=== PATIENT | female | born 1975 | race Caucasian/White ===

== ENCOUNTER 2017-08-23 14:55 | Emergency (ER) | payer OTHER ==
[~2017-08-23] VITALS: Ht 165.1 cm; Wt 100.0 kg
[2017-08-23 15:00] VITALS: BP 136/71; PULSE 100; RESP 16; TEMP 97.8
[2017-08-23 15:36] VITALS: BP 129/73; PULSE 77; RESP 18; TEMP 98.2; O2SAT 96; O2SAT 98
--- NOTE | 2017-08-23 15:38 | PD ---
HPI Chief Complaint: Respiratory Symptoms Time Seen by Provider: 15:30 (Dyllan Short) Time Seen by Provider: 15:36 (Taye Naqvi MD) Travel History International Travel<30 days: No Contact w/Intl Traveler<30days: No Traveled to known affect area: No (Dyllan Short) International Travel<30 days: No Contact w/Intl Traveler<30days: No (Taye Naqvi MD) History of Present Illness HPI This is a 42-year-old female with no significant past medical history who presents for evaluation of cough. Symptoms started 2 weeks ago. The cough is productive with green sputum. She has had occasional tinges of blood in her sputum during forceful coughing episodes. She reports a sore throat as well. Denies any fevers, chills, abdominal pain, nausea or vomiting, shortness of breath. She reports that her daughter had a slight sore throat last week as well. She has been using [id number] DayQuil for symptom control. She has no other complaints at this time. (Dyllan Short) [facility] Past Medical History ?: Not (Dyllan Short) Social History Alcohol Use: Yes Tobacco Use: No (Dyllan Short) Allergies-Medications (Allergen,Severity, Reaction): Coded Allergies: prednisone (Verified Allergy, Severe, Shortness of Breath, 08/23/17) Reported Meds & Prescriptions Reported Meds & Active Scripts Active Tessalon Perles (Benzonatate) 100 Mg Cap 100 Mg PO TID PRN Azithromycin 250 Mg Tab 250 Mg PO DIRECTED Take 2 tabs (500 mg) on day 1 then 1 tab daily x 4 days. (Taye Naqvi MD) Review of Systems Except as stated in HPI: all other systems reviewed are Neg (Dyllan Short) Physical Exam Narrative GENERAL: Well-developed well-nourished female no acute distress SKIN: Warm and dry. HEAD: Atraumatic. Normocephalic. EYES: Pupils equal and round. No scleral icterus. No injection or drainage. ENT: No nasal bleeding or discharge. Mucous membranes pink and moist. No oral pharyngeal erythema or exudate. NECK: Trachea midline. No JVD. No lymphadenopathy. Neck supple. CARDIOVASCULAR: Regular rate and rhythm. No murmur appreciated. RESPIRATORY: No accessory muscle use. Clear to auscultation. Breath sounds equal bilaterally. GASTROINTESTINAL: Abdomen soft, non-tender, nondistended. Hepatic and splenic margins not palpable. (Dyllan Short) Data Data Last Documented VS Vital Signs Date Time Temp Pulse Resp B/P (MAP) Pulse Ox O2 Delivery O2 Flow Rate FiO2 08/23/17 17:40 98.2 86 18 121/72 (88) 99 08/23/17 15:36 Room Air (Taye Naqvi MD) Orders Orders Chest, Pa & Lat (08/23/17 ) Group A Rapid Strep Screen (08/23/17 15:35) Strep Culture (Group A) (08/23/17 15:40) Ed Discharge Order (08/23/17 17:24) (Taye Naqvi MD) MDM Medical Decision Making Medical Screen Exam Complete: Yes Emergency Medical Condition: Yes Medical Record Reviewed: Yes Differential Diagnosis Bronchitis, pneumonia, reactive airway disease, bronchiectasis, pharyngitis Narrative Course Patient appears well. A chest x-ray and rapid strep screen has been ordered. They are negative. Stable for discharge. (Dyllan Short) Diagnosis Primary Impression: Bronchitis Med/Other Pt SpecificInfo: Prescription(s) given (Dyllan Short) Scripts Benzonatate (Tessalon Perles) 100 Mg Cap 100 MG PO TID Y for COUGH, #30 CAP 0 Refills Prov: Taye Naqvi MD 08/23/17 Azithromycin (Azithromycin) 250 Mg Tab 250 MG PO DIRECTED for Infection, #6 TAB 0 Refills Take 2 tabs (500 mg) on day 1 then 1 tab daily x 4 days. Prov: Taye Naqvi MD 08/23/17 Disposition: 01 DISCHARGE HOME Condition: Stable Dyllan Short Aug 23, 2017 15:38 Taye Naqvi MD Aug 24, 2017 21:39
--- NOTE | 2017-08-23 15:55 | RADRPT ---
EXAM DATE/TIME: 08/23/2017 15:49 [facility] COMPARISON: No previous studies available for comparison. INDICATIONS : Cough, tightness in chest. MEDICAL HISTORY : None. SURGICAL HISTORY : None. ENCOUNTER: Initial ACUITY: 1 day PAIN SCORE: 4/10 LOCATION: Bilateral chest FINDINGS: PA and lateral views of the chest demonstrate the lungs to be symmetrically aerated without evidence of mass, infiltrate or effusion. The cardiomediastinal contours are unremarkable. Osseous structure s are intact. Surgical clips in the right upper abdominal quadrant are characteristic of prior cholec ystectomy. CONCLUSION: No acute cardiopulmonary process. Christophe Nunez MD on August 23, 2017 at 15:52 Board Certified Radiologist. This report was verified electronically.
[2017-08-23] MEDS ORDERED: BENZ100 PO (17:23)
[2017-08-23] MEDS ORDERED: AZIT250T3 PO (17:23)
[2017-08-23 17:40] VITALS: BP 121/72; TEMP 98.2
== END 2017-08-23 17:40 | disposition home or self-care (01) ==
LOC: NEPC 14:55
DX: J40 Bronchitis, not specified as acute or chronic (principal); Z88.8 Allergy status to other drugs, medicaments and biological substances
CPT/HCPCS: 71046; 87081; 87880; 99284

== ENCOUNTER 2017-09-25 10:45 | Emergency (ER) | payer OTHER ==
[~2017-09-25] VITALS: Ht 165.1 cm; Wt 96.0 kg
[~2017-09-25 10:45] MED LIST: AZIT250T3 PO; BENZ100 PO
[2017-09-25 11:05] VITALS: BP 190/77; PULSE 94; RESP 17; TEMP 98.9; O2SAT 100
--- NOTE | 2017-09-25 11:40 | RADRPT ---
EXAM DATE: 09/25/2017 11:33 AM EDT AGE/SEX: 42 years / Female INDICATIONS: Left medial ankle pain after fall. CLINICAL DATA: This is the patient's initial encounter. Patient reports that signs and symptoms have been present for 2 days and indicates a pain score of 8/10. MEDICAL/SURGICAL HISTORY: None. None. COMPARISON: No prior [facility] exams available for comparison. FINDINGS: Bony structures are intact and in normal alignment. Joints are intact without dislocation or signifi cant arthropathy. Osseous density is normal. Soft tissues are unremarkable. No radiopaque foreign bodies seen. CONCLUSION: Negative examination Electronically signed by: Adonis Valedrrama MD 09/25/2017 11:39 AM EDT
[2017-09-25] MEDS ORDERED: ACETAMINOPHEN/HYDROcodone 325 MG/5 MG TAB PO ONE (13:45)
--- NOTE | 2017-09-25 13:59 | PD ---
HPI Chief Complaint: Injury Time Seen by Provider: 13:31 Travel History International Travel<30 days: No Contact w/Intl Traveler<30days: No Traveled to known affect area: No History of Present Illness HPI 42-year-old female that presents to the ED for evaluation of injury to her left ankle and foot. Per patient is happened last night after work. Per patient she tripped and injured her left ankle. No previous injury. Per patient the pain is 6 out of 10. She was concerned because he was very swollen she has difficulty walking on it. She denies any headache or any other injury other than some bruises to her arms and her other leg from the fall. She is not too concerned about this and she states that her only concern is that ankle. She has an allergy to prednisone. She has not taken anything for this. She denies any abdominal pain. No chest pain. No syncope. PFSH Past Medical History Diminished Hearing: No ?: Not Para: 4 Tubal Ligation: Yes Past Surgical History Section: Yes (4) Cholecystectomy: Yes Genitourinary Surgery: Yes (gastric bypass- ) Hysterectomy: Yes Social History Alcohol Use: Yes (1 day a wk) Tobacco Use: No Substance Use: No Allergies-Medications (Allergen,Severity, Reaction): Coded Allergies: prednisone (Verified Allergy, Severe, Shortness of Breath, 08/23/17) Reported Meds & Prescriptions Reported Meds & Active Scripts Active Tramadol (Tramadol HCl) 50 Mg Tab 50 Mg PO Q6H PRN Diclofenac Sodium DR (Diclofenac Sodium) 75 Mg Tabdr 75 Mg PO BID PRN Tessalon Perles (Benzonatate) 100 Mg Cap 100 Mg PO TID PRN Azithromycin 250 Mg Tab 250 Mg PO DIRECTED Take 2 tabs (500 mg) on day 1 then 1 tab daily x 4 days. Review of Systems Except as stated in HPI: all other systems reviewed are Neg Physical Exam Narrative GENERAL: SKIN: Warm and dry. HEAD: Atraumatic. Normocephalic. EYES: Pupils equal and round. No scleral icterus. No injection or drainage. ENT: No nasal bleeding or discharge. Mucous membranes pink and moist. Tongue is midline. No uvula deviation. NECK: Trachea midline. No JVD. CARDIOVASCULAR: Regular rate and rhythm. No murmurs, S3, S4. RESPIRATORY: No accessory muscle use. Clear to auscultation. Breath sounds equal bilaterally. GASTROINTESTINAL: Abdomen soft, non-tender, nondistended. Hepatic and splenic margins not palpable. MUSCULOSKELETAL: Extremities without clubbing, cyanosis, or edema. No obvious deformities. Full range of motion of the upper and lower extremities bilaterally. Patient does have significant bruising and swelling on the lateral aspect of the left ankle and foot. Tenderness to palpation on the fifth metatarsal. She does have a small abrasion to the left ankle. NEUROLOGICAL: Awake and alert. No obvious cranial nerve deficits. Motor grossly within normal limits. Five out of 5 muscle strength in the arms and legs. Normal speech. PSYCHIATRIC: Appropriate mood and affect; insight and judgment normal. Data Data Last Documented VS Vital Signs Date Time Temp Pulse Resp B/P (MAP) Pulse Ox O2 Delivery O2 Flow Rate FiO2 09/25/17 13:36 Room Air 09/25/17 11:05 98.9 94 17 190/77 (114) 100 Orders Orders Ankle, Complete ([id number]) (09/25/17 ) Acetamin-Hydrocod 325-5 Mg ([place] 5-325 (09/25/17 13:45) Foot, Complete ([id number]) (09/25/17 ) Ed Discharge Order (09/25/17 14:28) Splint Or Brace Apply/Monitor (09/25/17 14:28) MDM Medical Decision Making Medical Screen Exam Complete: Yes Emergency Medical Condition: Yes Medical Record Reviewed: Yes Interpretation(s) Last Impressions Ankle X-Ray 09/25/17 0000 Signed Impressions: CONCLUSION: Negative examination X-ray of the left foot was negative for acute disease. Differential Diagnosis Fracture versus sprain versus strain versus bruise versus contusion Narrative Course 42-year-old female that presents to the ED for evaluation of left ankle pain. Patient was properly examined and was found to have signs and symptoms concerning for fractures. X-rays were done. She is were negative for acute disease. Patient was reassured. This appears to be likely bad sprain. Will put patient on brace, crutches. Given prescription for tramadol and diclofenac sodium. Told to follow-up closely with PCP. See ED if worsening symptoms. Diagnosis Primary Impression: Ankle sprain Qualified Codes: S93.402A - Sprain of unspecified ligament of left ankle, initial encounter Patient Instructions: General Instructions, Narcotic given in the ED Departure Forms: Tests/Procedures, Work Release Special Instructions: Please allow patient to do light duty if possible. patient should not be standing for longs periods of time and will need to use crutches to get about until 09/29/17. Ok to use upper extremities. Additional Instructions: Take medications as prescribed. Follow-up with PCP. See ED for any worsening symptoms. Do not drink or drive while taking pain medication. Apply ice or heat as needed for pain Med/Other Pt SpecificInfo: Prescription(s) given Scripts Tramadol (Tramadol) 50 Mg Tab 50 MG PO Q6H Y for PAIN, #12 TAB 0 Refills Prov: Derick Maguire MD 09/25/[address] (Diclofenac Sodium DR) 75 Mg Tabdr 75 MG PO BID Y for PAIN SCALE 1 TO 10, #20 TAB 0 Refills Prov: Derick Maguire MD 09/25/17 Disposition: 01 DISCHARGE HOME Condition: Stable Giovanni Vo September 25, 2017 13:59
[2017-09-25] MEDS ORDERED: TRAM50TA PO (14:29)
[2017-09-25] MEDS ORDERED: DICL75TA PO (14:29)
--- NOTE | 2017-09-25 14:54 | RADRPT ---
EXAM DATE: 09/25/2017 2:14 PM EDT AGE/SEX: 42 years / Female INDICATIONS: Left foot pain on anterior and medial aspect. CLINICAL DATA: This is the patient's initial encounter. Patient reports that signs and symptoms have been present for 1 day and indicates a pain score of 8/10. MEDICAL/SURGICAL HISTORY: None. None. COMPARISON: No prior [facility] exams available for comparison. FINDINGS: Mild soft tissue prominence of the dorsal midfoot. Bony structures are intact and in normal alignment . Osseous density is normal. No radiopaque foreign bodies seen. CONCLUSION: 1. Mild soft tissue prominence of the dorsal midfoot without acute fracture or dislocation. Electronically signed by: Lauri Kent MD 09/25/2017 2:52 PM EDT
== END 2017-09-25 15:10 | disposition home or self-care (01) ==
LOC: NEPA 10:45
DX: S93.402A Sprain of unspecified ligament of left ankle, initial encounter (principal); W01.0XXA Fall on same level from slipping, tripping and stumbling without subsequent striking against object, initial encounter
CPT/HCPCS: 73610; 73630; 99283; E0113; L1906